=== PATIENT | male | born 1975 | race American Indian/Alaskan Native ===

== ENCOUNTER 2021-11-22 18:27 | Emergency (ER) | payer MEDICAID, SELFPAY ==
--- NOTE | ~2021-11-22 | XR_ITS ---
EXAMINATION: XR CHEST CLINICAL INFORMATION: Left-sided weakness. COMPARISON: None TECHNIQUE: 2 views of the chest were obtained. FINDINGS: No significant abnormality is noted involving the heart, lungs, mediastinum, bony thorax or soft tissues. XR/XR chest 2V IMPRESSION: Unremarkable examination.
--- NOTE | ~2021-11-22 | CT_ITS ---
EXAMINATION: CT HEAD WITHOUT CONTRAST CT LUMBAR SPINE WITHOUT CONTRAST CT HIP SPINE WITHOUT CONTRAST, LEFT CLINICAL INFORMATION: Left arm and leg weakness for 2 months. Hip pain. COMPARISON: None available. TECHNIQUE: Contiguous axial imaging was performed from the skull base to vertex without intravenous administration of contrast. Multidetector helical imaging of the lumbar spine and left hip was obtained without intravenous contrast. Multiple axial reformats and coronal/sagittal reconstructions were created the technologist workstation for review. DLP: 1444 mGy-cm FINDINGS: Head: There is no evidence of acute intracranial hemorrhage or edematous territorial infarction. There is no abnormal attenuation within the brain parenchyma. Roblero-white matter differentiation is preserved. The ventricles are normal in size and configuration. Persistent cavum veli interpositi. No evidence for obstructive hydrocephalus. No abnormal mass effect or midline shift. No extra-axial fluid collections. No acute soft tissue or osseous abnormalities. Mild mucosal thickening of the paranasal sinuses. Layering fluid within the bilateral maxillary sinuses. The mastoid air cells and middle ear cavities are clear. Lumbar Spine: Normal anatomic alignment. No evidence of acute fracture or traumatic subluxation. The vertebral body heights are maintained. Mild loss of intervertebral disc height at all levels. No suspicious lytic or sclerotic osseous lesions. No significant abnormalities of the paraspinal musculature. Limited evaluation of the intra-abdominal structures without significant abnormalities. The abdominal aorta is of normal contour and caliber. AXIAL SPINAL LEVELS: L1-L2: Normal annular contour. There is no facet joint arthropathy. There is no neural foraminal stenosis. There is no demonstrated spinal canal stenosis. L2-L3: Normal annular contour. There is mild left and no right facet joint arthropathy. There is no neural foraminal stenosis. There is no demonstrated spinal canal stenosis. L3-L4: Shallow diffuse disc bulge. There is mild bilateral facet joint arthropathy. There is mild left and no right neural foraminal stenosis. There is no demonstrated spinal canal stenosis. L4-L5: Shallow diffuse disc bulge. There is mild bilateral facet joint arthropathy. There is mild left and no right neural foraminal stenosis. There is no demonstrated spinal canal stenosis. L5-S1: Mild diffuse disc bulge. There is mild bilateral facet joint arthropathy. There is no neural foraminal stenosis. There is no demonstrated spinal canal stenosis. Left Hip: Normal alignment of the left hip. No demonstrated acute fracture or dislocation of the left hip. No demonstrated cortical disruption. The trabecular lines are maintained. Mild degenerative arthropathy of the left hip with slight subchondral eburnation of the superior acetabulum and marginal osteophytosis. Otherwise, the joint space is well-preserved. No lytic or sclerotic osseous lesions. No demonstrated significant hip joint effusion. Mild fat stranding inferior to the left ischial tuberosity with mild enthesophyte formation. No demonstrated additional focal soft tissue swelling. No demonstrated soft tissue collection. No radiopaque foreign bodies. CT/CT lumbar spine wo con IMPRESSION: 1. No evidence of acute intracranial hemorrhage or edematous territorial infarction. 2. Mild to moderate sinonasal mucosal disease with layering fluid within the bilateral maxillary sinuses. 3. No evidence of acute fracture or traumatic subluxation of the lumbar spine. 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 Most notably on this limited exam without intrathecal contrast, there appears to be mild neural foraminal stenoses at L3-L4 and L4-L5. No overt spinal canal stenosis. 4. No demonstrated fracture or dislocation of the left hip. Mild degenerative arthropathy of the left hip. 5. Mild fat stranding inferior to the left ischial tuberosity with mild enthesophyte formation.
[2021-11-22 18:36] VITALS: BP 143/74; PULSE 81; RESP 16; TEMP 36.5; O2SAT 100; BMI 30.4
--- NOTE | 2021-11-22 19:14 | ECG_ITS ---
Test Reason : WEAK Blood Pressure : / mmHG Vent. Rate : 064 BPM Atrial Rate : 064 BPM P-R Int : 172 ms QRS Dur : 074 ms QT Int : 388 ms P-R-T Axes : 032 015 005 degrees QTc Int : 400 ms Normal sinus rhythm Normal ECG No previous ECGs available Referred By: Edie Davis Electronically Signed By:Dequan Brice
--- NOTE | 2021-11-22 19:21 | ED.NEUROSD ---
HPI - Neuro Symptoms/Deficit General Chief Complaint: Extremity Problem Stated Complaint: weakness in L leg Time Seen by Provider: 11/22/21 18:46 Source: patient Mode of arrival: ambulatory Limitations: no limitations History of Present Illness HPI Narrative: 46-year-old male with a past medical history of chronic back pain otherwise denies any other medical history presenting to the ED with complaints of persistent non progressive 1 month of left arm/left leg weakness reporting it does not move the way I wanted to . He believes that his gait has changed. He denies any dizziness, headaches, neck pain/ stiffness, trouble swallowing or breathing, drooling, changes in voice, slurred speech, droopiness of the face, paresthesias, recent falls, chest pain or shortness of breath, dyspnea on exertion, orthopnea, palpitations, lower extremity edema or calf tenderness, nausea/vomiting / diarrhea constipation, abdominal pain, urinary or bowel incontinence or retention, rashes, IV drug use or any other symptoms complaints or concerns at this time. Onset (ago): month(s) (1) Location: left arm and left leg History of same: No Severity: mild Quality: weak and constant Relieving factors: none Exacerbating factors: other (walking) Context: gradual onset On Anticoagulants: No Associated symptoms: denies other symptoms Treatments Prior to Arrival: none Related Data Allergies Allergy/AdvReac Type Severity Reaction Status Date / Time acetaminophen [From VICODIN] Allergy Unknown SWELLING/RA Unverified 11/22/21 18:36 hydrocodone [From VICODIN] Allergy Unknown SWELLING/RA Unverified 05/16/20 15:22 Review of Systems Review of Systems: Constitutional : No Fever, No Chills, No Night Sweats, No Fatigue, No Malaise ENT/Mouth : No Ear Pain, No Nasal Congestion, No Sinus Pain, No sore throat, No Rhinorrhea Eyes: No Eye Pain, No Swelling, No Redness, No Foreign Body, No Discharge, No Vision Changes Cardiovascular : No Chest Pain, No SOB, No Dyspnea on Exertion, No Orthopnea, No Palpitations Respiratory : No Cough, No Sputum, No Wheezing, No Dyspnea Gastrointestinal : No Nausea, No Vomiting, No Diarrhea, No Constipation, No abdominal Pain, No Hematochezia, No Melena Genitourinary : No Dysuria, No Urinary Frequency, No Urinary Incontinence, No Urgency, No Flank Pain Musculoskeletal : + left hip joint pain, No Myalgias, No joint swelling Skin : No lacerations Neuro : + left upper arm and left lower leg weakness, No Numbness, No Paresthesias, No Loss of Consciousness, No Dizziness, No Headache Yes all other systems are reviewed and are negative [facility] Past Medical History Attestation statement: The following information was validated with the patient. Medical History No known health problems Social History Social History Advance Directives: No Advance Directives Information Provided: No Physical Exam Vital Signs: Vital Signs: Last Vital Signs Temp 97.7 F 11/22/21 18:36 Pulse 81 11/22/21 18:36 Resp 16 11/22/21 18:36 BP 143/74 H 11/22/21 18:36 Pulse Ox 100 11/22/21 18:36 BMI result Body Mass Index 30.4 Vital signs have been reviewed as normal and appeared to be correct. Blood pressure normal. Heart rate normal. Respiration rate normal. Temperature normal. Oxygen saturation normal. Appearance: Alert. Oriented X3. No acute distress. Head: Normal external exam. Normocephalic. Atraumatic. Able to rotate head bilaterally. Eyes: PERRLA. EOMI. No nystagmus noted. Conjunctiva and sclera normal. Eyelids normal. Corneal reflex normal. ENT: EAC normal. TM's Normal. Hearing normal. Pharynx normal. Uvula midline. tongue midline. Moist mucous membranes. No trismus noted. No drooling noted. No muffled voice noted. No nystagmus noted. Neck: Normal inspection. Neck supple. FROM. No adenopathy. Trachea midline. Thyroid Normal. No meningeal signs. No neck mass noted. CVS: Normal heart rate and rhythm. Heart sound normal. No murmurs noted. Pulses normal throughout. Respiratory: No respiratory distress. Painless inspiration. Breath sounds normal. No wheezes/rales/rhonchi noted. Chest nontender. No accessory muscle usage noted or decreased air movement noted. Abdomen: Soft and nontender. Bowel sounds normal in all 4 quadrants. No distention noted. No organomegaly noted. No visible injury noted. Back: No CVA tenderness. Full range of motion noted. Skin: Skin warm and dry. Normal skin color. Normal skin turgor. No rashes/lesions/lacerations noted. Extremities: No lower extremity edema. Extremities exhibit normal range of motion. Extremities nontender. Able to shrug shoulders bilaterally and keep up against resistance. Neuro: Oriented X 3. No motor deficit. No sensory deficit. Reflexes normal. Moving all extremities. No focal motor deficits. Cranial nerves II-XI intact bilaterally. Facial strength normal. Normal cognition. Speech normal. Gait normal. Strength 5/5 throughout. No pronator drift. No tremor noted. No fasciculations noted. No rigidity noted. Muscle tone normal throughout. No asterixis noted. Znzkcp-vg-[id number] test normal. Heel to lopez test normal. Tandem gait normal. Does not sway with eyes open. Romberg test negative. Rapid alternating movement upper extremity normal. Rapid alternating movement lower extremity normal. Hand drop from overhead Misses face. NIHSS score 0. Course Course Course Narrative: 19:15pm - 46-year-old male with a past medical history of chronic back pain otherwise denies any other medical history presenting to the ED with complaints of persistent non progressive 1 month of left arm/left leg weakness reporting it does not move the way I wanted to . He believes that his gait has changed. Plan: labs, EKG, CT scan of brain, CT scan of lumbar and left hip, chest x-ray then re-evaluate. Reevaluation(s) Reevaluation #1: - Sign out to [facility] Landrum pending labs, CXR, CT scan of brain/lumbar and left hip results. Time: 20:14 [facility] - Neuro Symptoms/Deficit Medical Records Attestation: I reviewed the patient's medical records. Lab Data Attestation: I reviewed the patient's lab results. Result diagrams: 11/22/21 20:07 11/22/21 20:07 Labs: Lab Results 11/22/21 Range/Units 20:07 WBC 7.6 (4.8-10.8) X10*3/uL RBC 4.42 L (4.60-5.80) X10*6/uL Hgb 13.5 L (14.0-18.0) g/dl Hct 41.6 L (42.0-52.0) % MCV 94.1 (80.0-98.0) fL MCH 30.5 (27.0-33.0) pg MCHC 32.5 (31.0-36.0) g/dl RDW 13.2 (11.0-16.0) % Plt Count 159 L (160-400) X10*3/uL MPV 11.4 (9.4-12.4) fL Immature Gran % (Auto) 0.1 (0.0-0.4) % Neut % (Auto) 35.2 L (45-73) % Lymph % (Auto) 54.3 H (20-40) % Glascock % (Auto) 7.5 (2-11) % Eos % (Auto) 2.4 (0-4) % Baso % (Auto) 0.5 (0-2) % Lymph # (Auto) 4.1 (1.2-4.9) X10*3/uL Glascock # (Auto) 0.6 (0.1-1.2) X10*3/uL Eos # (Auto) 0.2 (0.0-0.4) X10*3/uL Baso # (Auto) 0.0 (0.0-0.2) X10*3/uL Abs Immat Gran (auto) 0.01 (0.00-0.03) X10*3/uL Absolute Neuts (auto) 2.7 (2.0-8.3) x10*3/uL Absolute Nucleated RBC 0.000 (0.0-0.012) X10*3/uL Nucleated RBC % (auto) 0.0 (0.0-0.2) /100WBC ECG Data Attestation: I personally reviewed and interpreted this ECG as follows: ECG interpretation date: 11/22/21 ECG interpretation time: 19:50 Interpretation: Normal sinus rhythm with ventricular rate of 64 with a normal MN interval normal QRS duration normal QT/ QTC interval. No acute ischemic change are noted. No prior EKGs to compare to in our system at this time. Critical Care Time Critical Care Time Critical Care Time: Yes Total Critical Care Time: 60 Attestation: I personally attest to this time spent taking care of the patient Discharge Plan Discharge Clinical Impression: Acute pain of left hip, Left arm weakness, Left leg weakness Patient Disposition: Still a Patient Instructions: Hip Pain (ED) Referrals: Physician,Joaquim J [Primary Care Provider] - 2 days (your pcp) Print Language: Emirati
[2021-11-22 20:11] LABS: MANUAL DIFF FLAG NO
[2021-11-22 20:12] LABS: Basophils Percent Auto 0.5 % (0-2); Eosinophils Absolute Auto 0.2 X10*3/uL (0.0-0.4); Eosinophils Percent Auto 2.4 % (0-4); Hematocrit 41.6 % (42.0-52.0); Hemoglobin 13.5 g/dl (14.0-18.0); Imm Gran Abs Auto 0.01 X10*3/uL (0.00-0.03); Imm Gran Pct Auto 0.1 % (0.0-0.4); Lymphocytes Absolute Auto 4.1 X10*3/uL (1.2-4.9); Lymphocytes Percent Auto 54.3 % (20-40); Mean Corpuscular HGB Conc 32.5 g/dl (31.0-36.0); Mean Corpuscular Hemoglobin 30.5 pg (27.0-33.0); Mean Corpuscular Volume 94.1 fL (80.0-98.0); Mean Platelet Volume 11.4 fL (9.4-12.4); Monocytes Absolute Auto 0.6 X10*3/uL (0.1-1.2); Monocytes Percent Auto 7.5 % (2-11); Neutrophils Absolute Auto 2.7 x10*3/uL (2.0-8.3); Neutrophils Percent Auto 35.2 % (45-73); Platelet Count 159 X10*3/uL (160-400); Red Blood Count 4.42 X10*6/uL (4.60-5.80); Red Cell Distribution Width 13.2 % (11.0-16.0); White Blood Count 7.6 X10*3/uL (4.8-10.8)
[2021-11-22 20:19] LABS: INTERNATIONAL NORM RATIO 1.1 (0.9-1.1); Prothrombin Time 12.6 SEC (9.9-13.0)
[2021-11-22 20:33] LABS: Alanine Aminotransferase 30 U/L (0-40); Albumin Level 4.2 g/dL (3.5-5.0); Alkaline Phosphatase 49 U/L (39-117); Anion Gap 14 (12-20); Aspartate Amino Transferase 34 U/L (5-37); Bilirubin Total 0.6 mg/dL (0.0-1.0); Blood Urea Nitrogen 12 mg/dL (9-16); Calcium 9.5 mg/dL (8.4-10.2); Carbon Dioxide 26 mmol/L (22-29); Chloride 107 mmol/L (96-108); Creatinine Clr Calc Pharmacy 109.4; Estimated Glomerular Filt Rate > 60; Glucose Random 102 mg/dL (60-115); Magnesium 2.3 mg/dL (1.6-2.6); Potassium 4.5 mmol/L (3.3-5.1); Sodium 142 mmol/L (135-145); Total Protein 7.4 g/dL (6.5-8.0); Troponin-I High Sensitivity < 3.5 ng/L (<3.5-35.0)
== END 2021-11-22 22:34 | disposition home or self-care (01) ==
PROVIDERS: Physician Assistant Medical; Emergency Provider Internal Medicine
DX: M25.552 Pain in left hip (principal); R53.1 Weakness
CPT/HCPCS: 36415; 70450; 71046; 72131; 73700; 80053; 82550; 83735; 84484; 85025; 85610; 93005; 99284; 99291

== ENCOUNTER 2021-12-06 19:10 | Emergency (ER) | payer OTHER, MEDICAID, SELFPAY ==
--- NOTE | ~2021-12-06 | XR_ITS ---
EXAMINATION: X-RAY RIGHT HAND X-RAY RIGHT WRIST CLINICAL INFORMATION: Fall COMPARISON: X-ray right hand 01/17/2020 TECHNIQUE: Hand 3 views. Wrist 4 views. FINDINGS: Right wrist: No evidence of acute fracture or dislocation. The scaphoid bone appears intact. Joint spaces are maintained. 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 Right hand: No evidence of acute fracture or dislocation. Alignment is anatomic. Joint spaces are maintained. XR/XR wrist RT 2V IMPRESSION: No radiographic evidence of acute osseous abnormality.
--- NOTE | ~2021-12-06 | XR_ITS ---
EXAMINATION: X-RAY RIGHT HAND X-RAY RIGHT WRIST CLINICAL INFORMATION: Fall COMPARISON: X-ray right hand 01/17/2020 TECHNIQUE: Hand 3 views. Wrist 4 views. FINDINGS: Right wrist: No evidence of acute fracture or dislocation. The scaphoid bone appears intact. Joint spaces are maintained. 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 Right hand: No evidence of acute fracture or dislocation. Alignment is anatomic. Joint spaces are maintained. XR/XR hand RT min 3V IMPRESSION: No radiographic evidence of acute osseous abnormality.
[2021-12-06 19:13] VITALS: BP 126/76; PULSE 68; RESP 17; TEMP 35.9; O2SAT 97; BMI 29.8
--- NOTE | 2021-12-06 19:35 | ED_ITS ---
HPI - Extremity Problem General Chief complaint: Extremity Injury, Upper Stated complaint: hand injury - work related Time Seen by Provider: 12/06/21 19:25 Source: patient Mode of arrival: ambulatory History of Present Illness HPI Narrative: 46-year-old male with no significant past medical history presenting to the ED complaining of right hand/middle finger and wrist pain s/p trip and fall at work yesterday. States was holding box and tripped over something on the floor landing on right hand in awkward position. Denies head trauma/LOC. Reports pain with hand/wrist ROM. Also reports associated tingling. Denies numbness, weakness MD Complaint: extremity pain and extremity swelling Onset (ago): day(s) Related Data Allergies Allergy/AdvReac Type Severity Reaction Status Date / Time acetaminophen [From VICODIN] Allergy Unknown SWELLING/RA Verified 12/06/21 19:12 hydrocodone [From VICODIN] Allergy Unknown SWELLING/RA Verified 12/06/21 19:12 Review of Systems Review of Systems: Constitutional: No Fever, No Chills ENT/Mouth: No Ear Pain, No Nasal Congestion,No sore throat, No Rhinorrhea, No Swallowing Difficulty Cardiovascular: No Chest Pain, No SOB Respiratory: No Cough, No Sputum Gastrointestinal: No Nausea, No Vomiting, No Diarrhea, No Constipation, No Abdominal pain Genitourinary:, No Dysuria, No Urinary Frequency, No Hematuria, No Flank Pain Musculoskeletal: + joint pain, No Myalgias, + Joint Swelling Skin: No Skin Lesions, No rash Neuro: No Weakness, No Numbness, + Paresthesias Yes all other systems are reviewed and are negative Neurologic: Denies Sensory deficit (Neuro) REPLACED BY [facility] Past Medical History Attestation statement: The following information was validated with the patient. Medical History No known health problems Social History Social History Advance Directives: No Advance Directives Information Provided: Yes Physical Exam Vital Signs: Vital Signs: Last Vital Signs Temp 96.6 F L 12/06/21 19:13 Pulse 68 12/06/21 19:13 Resp 17 12/06/21 19:13 BP 126/76 12/06/21 19:13 Pulse Ox 97 12/06/21 19:13 BMI result Body Mass Index 29.8 Const: General: cooperative, healthy appearing and no acute distress Orientation/consciousness: patient oriented x3 Limitations: no limitations HEENT: Head: Yes normal to inspection and Yes atraumatic Ears: hearing grossly normal bilaterally General nose exam: Normal external nose present Face and sinus: Yes normal facial exam Eyes: General: appearance normal, both eyes and all related structures EOM: EOMs intact bilaterally Neck: Neck: Yes normal visual inspection and Yes no meningeal signs Resp: Effort & Inspection: normal respiratory effort and no respiratory distress Cardio: Rate: regular rate Peripheral pulses: radial pulses present Skin: Rashes: no rashes Wounds: no wounds Neuro: General: patient oriented x3, tone normal and no meningeal signs Gait exam (Neuro): Normal gait present Sensory Exam: No Sensory deficit (Neuro) Extrem: Other: Right wrist with mild tenderness. No snuffbox tenderness. FROM intact. Third digit with noted swelling. FROM intact to all digits, [id number] opposition limited to 3rd digit 2/2 pain, otherwise intact. Neurovascular intact, sensation intact to light touch Course Course Course Narrative: XR wrist RT 2V / XR hand RT min 3V IMPRESSION: No radiographic evidence of acute osseous abnormality. >> results discussed with patient, is to follow-up with PCP. Will apply finger splint to 3rd digit for possible tendon injury and give patient orthopedic hand follow-up MDM - Extremity (Nontraumatic) MDM Narrative Medical decision making narrative: 46-year-old male with no significant past medical history presenting to the ED complaining of right hand/middle finger and wrist pain s/p trip and fall at work yesterday. On exam vital signs stable, NAD/nontoxic, physical exam as above. Rule out fracture vs sprain Plan: X-rays Medical Records Attestation: I reviewed the patient's medical records. Lab Data Attestation: I reviewed the patient's lab results. Discharge Plan Discharge Clinical Impression: Hand injury Patient Disposition: Home, Self-Care Instructions: Hand Sprain (ED) Additional Instructions: Your x-ray does not show any fracture. You may have a tendon injury to your finger/strain Wear finger splint until you see the medical certification specialist, call to make an appointment. Take Tylenol /Motrin for pain Referrals: Ksenia Maria MD [Physician] - 1 week Stand Alone Forms: Work/School Release Interventions: ED Discharge Assessment Last Done: 12/06/21 21:24 Discharge Date/Time: 12/06/21 21:26
== END 2021-12-06 21:26 | disposition home or self-care (01) ==
PROVIDERS: Emergency Provider Internal Medicine
DX: S69.91XA Unspecified injury of right wrist, hand and finger(s), initial encounter (principal); W01.0XXA Fall on same level from slipping, tripping and stumbling without subsequent striking against object, initial encounter; Y93.01 Activity, walking, marching and hiking; Y92.513 Shop (commercial) as the place of occurrence of the external cause; Y99.0 Civilian activity done for income or pay
CPT/HCPCS: 29130; 73100; 73130; 99283

== ENCOUNTER → 2021-12-18 12:17 | Outpatient (BNVA) | payer OTHER, MEDICAID, SELFPAY | PROVIDERS: Visit Provider Physician Assistant | DX: S63.612A Unspecified sprain of right middle finger, initial encounter (principal); S63.501A Unspecified sprain of right wrist, initial encounter | CPT/HCPCS: 99202 ==

== ENCOUNTER → 2022-02-02 15:22 | Outpatient (BNVA) | payer OTHER, MEDICAID, SELFPAY | PROVIDERS: Visit Provider Physician Assistant | DX: S63.612A Unspecified sprain of right middle finger, initial encounter (principal); S63.501A Unspecified sprain of right wrist, initial encounter | CPT/HCPCS: 99212 ==

== ENCOUNTER 2022-02-18 08:38 | Outpatient (REF) | payer OTHER, MEDICAID, SELFPAY ==
--- NOTE | ~2022-02-18 | XR_ITS ---
EXAMINATION: RIGHT HAND AND 3RD FINGER. CLINICAL INFORMATION: Pain. COMPARISON: 12/06/2021. TECHNIQUE: 3 views of the right hand and 3 views of the right 3rd finger. FINDINGS: There is no evidence of acute fracture or dislocation of the right hand. There is no evidence of acute fracture or dislocation of the right 3rd finger. There is soft tissue swelling seen about the 3rd proximal interphalangeal joint. Joint spaces are maintained. No destructive bony lesions are identified. XR/XR hand RT min 3V IMPRESSION: Soft tissue swelling without bony fracture identified.
--- NOTE | ~2022-02-18 | XR_ITS ---
EXAMINATION: RIGHT HAND AND 3RD FINGER. CLINICAL INFORMATION: Pain. COMPARISON: 12/06/2021. TECHNIQUE: 3 views of the right hand and 3 views of the right 3rd finger. FINDINGS: There is no evidence of acute fracture or dislocation of the right hand. There is no evidence of acute fracture or dislocation of the right 3rd finger. There is soft tissue swelling seen about the 3rd proximal interphalangeal joint. Joint spaces are maintained. No destructive bony lesions are identified. XR/XR finger RT min 2V IMPRESSION: Soft tissue swelling without bony fracture identified.
== END 2022-02-18 08:39 | disposition home or self-care (01) ==
LOC: HO.HOSX 08:38
PROVIDERS: Visit Provider Orthopaedic Surgery
DX: S63.501D Unspecified sprain of right wrist, subsequent encounter (principal); S63.61 Unspecified sprain of other and unspecified finger(s)
CPT/HCPCS: 73130; 73140; 99212

== ENCOUNTER 2022-03-31 10:14 | Outpatient (REF) | payer OTHER, MEDICAID, SELFPAY ==
--- NOTE | ~2022-03-31 | XR_ITS ---
EXAMINATION: XR WRIST, RIGHT CLINICAL INFORMATION: Right wrist pain. COMPARISON: Right wrist radiographs 12/06/2021. TECHNIQUE: PA, lateral, and oblique views of the right wrist. FINDINGS: There has been no significant interval change when compared to 12/06/2021. Once again, the bones and soft tissues are normal. No fracture. Alignment is anatomic with normal joint spaces. No erosions or abnormal soft tissue calcifications. XR/XR wrist RT min 3V IMPRESSION: Normal right wrist.
== END 2022-03-31 10:15 | disposition home or self-care (01) ==
LOC: HO.HOSX 10:14
PROVIDERS: Visit Provider Orthopaedic Surgery
DX: S63.501A Unspecified sprain of right wrist, initial encounter (principal); S63.618A Unspecified sprain of other finger, initial encounter
CPT/HCPCS: 73110; 99212

== ENCOUNTER 2022-05-11 15:30 | Outpatient (RCR) | payer OTHER, MEDICAID, SELFPAY ==
--- NOTE | 2022-01-15 16:13 | MHC.OT.OEV ---
[address] [phone] F: [phone] Occupational Therapy Evaluation Diagnosis: Right MF sprain Date of Onset: 12/05/21 Date of Surgery: Attending Provider: Reyna Angulo PA-C Prescribed Treatment: Eval and treat MD Follow Up Appointment: History of Current Condition: Pt reports tripping on a pallet at work and falling on his right hand. Pt con't to work with his hand swollen. The next day to the ED. XR neg. Pt given a hand splint and referred to [facility] Ortho. Seen in Orthopedics , d/c'd splint and instructed on hand exercises. Pt now with reports con't pain , swelling and can't make a fist. 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 taping box, lift and stack on a pallet Watches TV. Work out with free wts and push ups at home.. Helps with homemaking Living Situation, Family and/or Social Support: Lives with girl friend, 21 yo daughter .. and small dog Current Level of Function and Occupation Self Care, Employment, Leisure: Pt reports he is unable to use his right hand . Avoiding right middle finger with all activities Can't wash dishes.. fold heavy clothes..can't lift groceries Not doing and wts or push ups OOW since the injury Sleep: Extreme difficulty sleeping. Inc digit swelling in the am Driving: Doesn't not drive.. Vision: Balance: Pain Assessment Pain Score: 8 Pain Scale Used: Numeric (0 - 10) Pain Location and Description: 8 -10 sharp at MF 4 if not using the hand Aggravating Factors: Moving the finger Alleviating Factors: Avoiding using the right hand Skin and Soft Tissue Assessment Skin and Soft Tissue: Swelling Comments: Right MF PIP jt Nerve assessment Ulnar Nerve: Median Nerve: Radial Nerve: Comments: Sensory Assessment Temperature: Light Touch: WFL Proprioception: Vibration: Comments: Edema Assessment Upper Extremity: Right Impaired Lower Extremity: Comments: Right PIPj 7.6 cm.... Left 7 cm Dexterity Assessment Dexterity: Not Tested Comments: Special Tests Comments: AROM(PROM) Strength Cervical Cervical Flexion: Cervical Extension: Cervical Lateral Flexion: Cervical Rotation: Comments: Shoulder Flexion: Extension: Abduction: Internal Rotation: External Rotation: Comments: Flexion: Extension: Abduction: Internal Rotation: External Rotation: Comments: Elbow Flexion: Extension: Pronation: Supination: Comments: Flexion: Extension: Pronation: Supination: Comments: Wrist Flexion: Extension: Ulnar Deviation: Radial Deviation: Comments: Flexion: Extension: Ulnar Deviation: Radial Deviation: Comments: Thumb Thumb CMC Flexion: Thumb MCP Flexion: Thumb IP Flexion: Radial Abduction: Palmar Abduction: [place] ([place] 0-10): Comments: Digits Index MCP: PIP: DIP: Long MCP: PIP: 0/90 DIP: 0/40 Ring MCP: PIP: DIP: Small MCP: PIP: DIP: Comments: R MF stiff. Passive digit flexion 0 cm to DPC Gross Grasp: Lateral Pinch: Two-Point Pinch: Three-Jaw [place]: Comments: Deferred. Patient Education Primary Language: Mongolian Associate Partner Required: No Current Knowledge: Minimal, needs reinforcement Teaching Method: Demonstration Handouts Verbal Education Needs Identified on Evaluation: Exercise How did patient/family demonstrate learning? Patient demonstrates Patient verbalizes Barriers to Learning: Other Readiness for Learning: Accepting Who was educated? Patient Comments: Plan of Care Assessment: Pt is a 46 yo male 5 wks s/p right MP PIPjt strain injury due to fall on his hand when he tripped over a pallet at work Today he presents with complaint of moderate to high pain and avoiding use of right hand MF PIPj effusion and IP jt stiffness noted. He has been out of work since this injury and needs to be able to use his right hand for repetitive grasp activities. Pt will benefit from OT to help improve pain , ROM and functional use of his right dominant hand STG Duration: 3 wks Short Term Goals: Demo right MF flexion to DPC Demo proper right hand grasp with daily activities including simulated work tasks Right monkey trainer strength to > 60 lb Indep with HEP LTG Duration: 3 wks Band Singer Goals: Same as above Frequency and Duration: The patient will be seen 2x wk x 2 wks Treatment Plan: Therapeutic Exercise Therapeutic Activity Home Exercise Program Patient Education Electronically Signed By: Laurie Banegas ot cht clt Reviewed/agree with student documentation: N/A Therapist: Please sign and return to therapist, Thank you for your referral.
--- NOTE | 2022-02-09 16:22 | MHC.OT.OP ---
[address] [phone] F: [phone] Occupational Therapy Progress Note Diagnosis: Right MF sprain Date of Surgery: Date of Evaluation: 01/15/22 Treatments to Date: 3 Cancellations to Date: No Shows to Date: Subjective: Now its like a seven , but if I hit something it goes to my finger tip. And it's stiff Pain Score: 7 Pain Location: Right MF Objective Measures: PIPj R 8 cm inc from 7.6 cm AROM PIPj 100 deg inc from 90 deg DIPj 50 deg inc from 40 deg... DIPj flex 20 deg with PIPJ flexion block Status: Not Progressing Assessment: Pt reports worsening pain and digit swelling and stiffness Inc in PIPj circumference by 0.4 cm noted today Inc ind digit AROM and composite digit flexion to DPC with gentle passive flexion however tight ORL noted Pt may benefit from PIPj immob splint fabricated today to work on DIPJ flex/ORL stretch. 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
--- NOTE | 2022-05-11 16:13 | MHC.OT.DC ---
[address] [phone] F: [phone] Occupational Therapy Discharge Note Provider: Ksenia Maria Diagnosis: Right MF sprain Date of Surgery: Date of Evaluation: 01/15/22 Date of Discharge: 05/11/22 Treatments to Date: 15 Cancellations to Date: No Shows to Date: Discharge Status: Improved Function Independent with HEP Discharge Summary: Continued complaint of high pain and complaint of hand swelling. Tolerated ther ex and lifting activities without complaint. 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 Hand edema and AROM WNL . Pt tends to be sub max with ROM but can correct with cues. ROM MF to DPC . Passive digit flexion with ease to DPC. 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 Skilled OT not needed Electronically Signed By: Laurie Banegas OT CHT CLT Reviewed/agree with student documentation: N/A Therapist: Please Sign and return to therapist, thank you for your referral.
== END 2022-05-11 16:13 | disposition home or self-care (01) ==
LOC: HO.OT 15:30
PROVIDERS: Visit Provider Physician Assistant
DX: S63.501A Unspecified sprain of right wrist, initial encounter (principal)
CPT/HCPCS: 97035; 97110; 97140; 97165; 97760

== ENCOUNTER → 2022-05-12 15:21 | Outpatient (BNVA) | payer OTHER, MEDICAID, SELFPAY | PROVIDERS: PCP Internal Medicine; Visit Provider Physician Assistant | DX: S63.501D Unspecified sprain of right wrist, subsequent encounter (principal); S63.692D Other sprain of right middle finger, subsequent encounter | CPT/HCPCS: 99212 ==

== ENCOUNTER 2022-06-09 15:00 | Outpatient (RCR) | payer OTHER, MEDICAID, SELFPAY | END 2022-06-22 13:41 | disposition home or self-care (01) | LOC: HO.PT 15:00 | PROVIDERS: PCP Internal Medicine; Visit Provider Internal Medicine | DX: M25.572 Pain in left ankle and joints of left foot (principal) | CPT/HCPCS: 97110; 97112; 97116; 97162 ==

== ENCOUNTER → 2022-06-30 15:16 | Outpatient (BNVA) | payer OTHER, MEDICAID, SELFPAY | PROVIDERS: PCP Internal Medicine; Visit Provider Physician Assistant | DX: S63.501A Unspecified sprain of right wrist, initial encounter (principal); S63.632A Sprain of interphalangeal joint of right middle finger, initial encounter; W01.0XXA Fall on same level from slipping, tripping and stumbling without subsequent striking against object, initial encounter; X50.0XXA Overexertion from strenuous movement or load, initial encounter; Y93.01 Activity, walking, marching and hiking; Y92.69 Other specified industrial and construction area as the place of occurrence of the external cause; Y99.0 Civilian activity done for income or pay | CPT/HCPCS: 99212 ==

== ENCOUNTER 2022-07-16 15:08 | Outpatient (REF) | payer MEDICAID, SELFPAY | END 2022-07-16 15:09 | disposition home or self-care (01) | LOC: HO.HOSX 15:08 | PROVIDERS: Visit Provider Physician Assistant | DX: Z13.89 Encounter for screening for other disorder (principal) ==

== ENCOUNTER 2022-07-17 | Outpatient (REF) | payer MEDICAID, SELFPAY ==
--- NOTE | ~2022-07-17 | XR_ITS ---
EXAMINATION: XR ankle LT min 3V CLINICAL INFORMATION: Reason for Exam M25.579 - Pain in unspecified ankle and joints of unspecified foot COMPARISON: Ankle radiographs 04/11/2015 TECHNIQUE: AP, lateral, and oblique views of the ankle FINDINGS: No acute fracture or dislocation. Joint spaces are maintained without significant degenerative change. No joint effusion or soft tissue abnormality. XR/XR ankle LT min 3V IMPRESSION: No acute osseous abnormality.
== END 2022-07-17 00:01 ==
LOC: HO.HOSX
PROVIDERS: Visit Provider Physician Assistant
DX: M25.572 Pain in left ankle and joints of left foot (principal)
CPT/HCPCS: 73610; 99212

== ENCOUNTER 2022-10-07 15:30 | Outpatient (RCR) | payer OTHER, MEDICAID, SELFPAY ==
--- NOTE | 2022-10-09 09:09 | MHC.OT.DC ---
[address] [phone] F: [phone] Occupational Therapy Discharge Note Provider: Reyna Angulo Diagnosis: Right wrist sprain Right middle finger sprain Date of Surgery: Date of Evaluation: 09/22/22 Date of Discharge: 10/09/22 Treatments to Date: 3 Cancellations to Date: 0 No Shows to Date: 0 Discharge Status: Discharge Summary: Pt report of severe right hand pain is unchanged at . 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 Today Pt denies hand paresthesia over this week. Significant difficulty with Functional Dexterity test bilaterally and a slight worsening today. FDT Right hand minimally functional and left hand non functional. Questioning baseline ability Wt bearing tolerance on a non digital scale the right hand is 50 lb , left hand 80 lb Lifting [place] box waist to chest 25 lb safe lift. Reports 30 lb too heavy for his back Quick DASH 54 pt. Functionally Pt reports he is unable to open tight jar lids. 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 He reports difficulty with heavy housework due to hand pain and back pain , difficulty with carrying groceries, , washing his back due to hand pain and shoulder pain . Pt reports waking at night with arm pain (biceps pain last night) throbbing. He also reports feeling anxious to leave his house. Inconsistency in pt presentation and duration of symptoms since injury suggest underlying issue perhaps neurological and should be ruled out. He demonstrates good technique with his HEP with red Theraband and a graded hand gripper without complaint of increased pain and he reports he is motivated to regain strength At this time I recommend MD follow up and continuing his HEP. Electronically Signed By: Laurie Banegas OT CHT CLT Reviewed/agree with student documentation: Therapist: Please Sign and return to therapist, thank you for your referral.
== END 2022-10-09 09:10 | disposition home or self-care (01) ==
LOC: HO.OT 15:30
PROVIDERS: Visit Provider Physician Assistant
DX: S63.501D Unspecified sprain of right wrist, subsequent encounter (principal); S63.61 Unspecified sprain of other and unspecified finger(s)
CPT/HCPCS: 97110; 97167

== ENCOUNTER 2022-11-05 15:05 | Outpatient (REF) | payer MEDICAID, SELFPAY ==
--- NOTE | ~2022-11-05 | XR_ITS ---
EXAMINATION: XR HIP, LEFT CLINICAL INFORMATION: Left hip pain COMPARISON: None TECHNIQUE: Two views of the left hip. FINDINGS: Bones and soft tissues are normal. No fracture. Alignment is anatomic. Hip joint space is maintained. XR/XR hip LT min 2V IMPRESSION: Normal left hip.
--- NOTE | ~2022-11-05 | XR_ITS ---
EXAMINATION: XR lumbar spine 2-3V CLINICAL INFORMATION: Reason for Exam CHRONIC BI LOW BACK PAIN COMPARISON: None TECHNIQUE: 3 views of the lumbar spine FINDINGS: 5 nonrib-bearing lumbar-type vertebral bodies. Vertebral body heights are maintained. Alignment is maintained. Disc space heights are maintained. Paravertebral soft tissues are unremarkable. XR/XR lumbar spine 2-3V IMPRESSION: Unremarkable exam.
== END 2022-11-05 15:06 | disposition home or self-care (01) ==
LOC: HO.XRAY 15:05
PROVIDERS: PCP Nurse Practitioner Family; Visit Provider Nurse Practitioner Family
DX: M54.50 Low back pain, unspecified (principal); M25.552 Pain in left hip; G89.29 Other chronic pain
CPT/HCPCS: 72100; 73502

== ENCOUNTER 2023-01-28 18:41 | Outpatient (REF) | payer MEDICAID, SELFPAY ==
--- NOTE | ~2023-01-28 | MR_ITS ---
EXAMINATION: MR ANKLE WITHOUT CONTRAST, LEFT CLINICAL INFORMATION: Chronic pain COMPARISON: None. TECHNIQUE: MRI of the left ankle is performed without contrast on a high field MRI scanner. FINDINGS: SUBCUTANEOUS SOFT TISSUES: Mild generalized edema circumferentially about the ankle and visualized foot. MUSCLES/TENDONS: Intact. PLANTAR FASCIA: Intact. NEUROVASCULAR STRUCTURES/TARSAL TUNNEL: Normal. LIGAMENTS: Anterior Talofibular Ligament: Attenuated compatible with an old partial tear. Ligaments otherwise are intact. BONE/CARTILAGE: Normal. MR/MR ankle LT wo con IMPRESSION: 1. Mild edema in the subcutaneous soft tissues. 2. Old partial tear of the anterior talofibular ligament.
== END 2023-01-28 18:42 | disposition home or self-care (01) ==
LOC: HO.MRI 18:41
PROVIDERS: PCP Nurse Practitioner Family; Visit Provider Emergency Medicine
DX: M25.572 Pain in left ankle and joints of left foot (principal)
CPT/HCPCS: 73721

== ENCOUNTER 2023-02-17 14:01 | Outpatient (REF) | payer MEDICAID, SELFPAY ==
--- NOTE | ~2023-02-17 | MR_ITS ---
EXAMINATION: MR CERVICAL SPINE WITHOUT AND WITH CONTRAST CLINICAL INFORMATION: Quadriparesis. COMPARISON: None available. TECHNIQUE: Multiplanar, multisequential imaging of the cervical spine was performed before and after the intravenous administration of 10 mL of Gadavist. FINDINGS: VERTEBRAL BODIES AND PARASPINAL SOFT TISSUES: There is mild marrow edema/enhancement posterolaterally on the left side at the C2-C3 level. The remainder of the marrow signal is homogeneous. There are no compression fractures or anterior subluxations. Reduced intradiscal signal without significant loss of disc height evident at the C2-C3 and C3-C4 levels. The paraspinal soft tissues are unremarkable. The vertebral artery flow-voids are maintained. The imaged lung apices are grossly clear. No pathologic enhancement identified. CERVICOMEDULLARY JUNCTION AND VISUALIZED POSTERIOR FOSSA: The craniovertebral junction is unremarkable. The imaged portions of the cord are normal. No signal abnormality or syrinx identified. No pathologic intradural enhancement is seen. SPINAL LEVELS: C2-C3: Mild disc degeneration and shallow disc-osteophyte complex without central canal stenosis. Patent foramina. Mild edema/enhancement at the site of left-sided uncovertebral joint spurring. C3-C4: Reduced intradiscal signal and shallow, broad-based posterior disc bulge with mild facet arthropathy. Mild central canal stenosis and hljr-cy-ohrsbrxw foraminal narrowing, more so on the right side. C4-C5: Retrosubluxation and disc-osteophyte complex without central canal stenosis. Severe bilateral foraminal narrowing and mild facet arthropathy. C5-C6: Broad-based disc bulge without central canal stenosis. Severe right foraminal narrowing and dihl-he-gumuhlgw left foraminal encroachment. C6-C7: Very small central disc protrusion. No central canal stenosis or significant foraminal narrowing. C7-T1: No disc pathology. Bilateral uncovertebral joint spurring and facet arthropathy without central canal stenosis. Zkwb-is-jrzppemk foraminal narrowing, more so on the left side. MR/MR cervical spine wo/w con IMPRESSION: 1. Bnly-ze-alulkudg multilevel cervical spondylosis. Mild central canal stenosis at the C3-C4 level with maem-pp-htpjhpoc foraminal narrowing, more so on the right side. 2. Severe bilateral foraminal narrowing at the C4-C5 level with a disc-osteophyte complex. 3. Broad-based disc bulge with severe right foraminal narrowing at the C5-C6 level.
--- NOTE | ~2023-02-17 | MR_ITS ---
EXAMINATION: MR BRAIN WITHOUT AND WITH CONTRAST CLINICAL INFORMATION: Quadriparesis. COMPARISON: None available. TECHNIQUE: Multiplanar, multisequence imaging of the brain was performed before and after the intravenous administration of 10 mL of Gadavist. FINDINGS: No diffusion abnormalities are identified to suggest an acute infarct. The ventricles are normal in size. No mass effect or midline shift is seen. Nonspecific mild bilateral frontoparietal white matter signal changes noted. No extra-axial fluid collections are seen. The brainstem and cerebellum are normal. On postcontrast imaging, there is no abnormal parenchymal or leptomeningeal enhancement. The gradient refocused acquisition is normal. The craniovertebral junction, marrow signal, and midline structures are normal. The major intracranial flow-voids at the level of the ig[place]ug[place] of [place] are preserved. The dural venous sinus flow-voids are maintained. A mild amount of fluid is visible in the left mastoid air cells. There is a small fluid level in the dependent right maxillary sinus. Small retention cyst visible in the left maxillary antrum. MR/MR head/brain wo/w con IMPRESSION: No acute intracranial process. Nonspecific bifrontal white matter signal changes. No abnormal enhancement.
== END 2023-02-17 14:02 | disposition home or self-care (01) ==
LOC: HO.MRI 14:01
PROVIDERS: PCP Nurse Practitioner Family; Visit Provider Psychiatry & Neurology Neurology
DX: G82.50 Quadriplegia, unspecified (principal)
CPT/HCPCS: 70553; 72156; A9585

== ENCOUNTER 2023-04-30 09:17 | Day surgery (SDC) | payer MEDICAID, SELFPAY ==
[2023-04-30] VITALS (8 sets, daily range): BP systolic 107–149; BP diastolic 66–81; PULSE 53–88; RESP 16–18; TEMP 36.4–36.8; O2SAT 96–99; BMI 29.0
--- NOTE | ~2023-04-30 | FL_ITS ---
PROCEDURE: XR LUMBAR PUNCTURE CLINICAL INFORMATION: Motor neuron disease. COMPARISON: None available. TECHNIQUE: Lumbar puncture with fluoroscopic guidance. FINDINGS: Informed consent was obtained from the patient prior to the procedure. During this process, the procedure and potential alternatives were explained, along with the intended outcome and benefits. The risks of the procedure, as well as the risk of not doing the procedure, were discussed. The patient was given the opportunity to ask questions regarding the procedure and appeared competent to make medical decisions. A signed consent form which documents this discussion was placed in the medical record. First attempts were made from a posterior approach at the L3-L4 level however access was not obtained. With Dr. Ordoñez's assistance spinal needle was placed at the L4-L5 level. Opening pressure was 12 cm of water. The cerebral spinal fluid was clear. A total of 8.5 mL of fluid was removed. Patient tolerated procedure without difficulty. FLUOROSCOPY TIME: 1.9 minutes DOSE AREA PRODUCT: 17.366 Gy-cm2 (britton-centimeter squared) FL/FL guided lumbar puncture LP IMPRESSION: Successful lumbar puncture L4-L5 level.
[2023-04-30 09:52] LABS: Basophils Percent Auto 0.4 % (0-2); Eosinophils Absolute Auto 0.1 X10*3/uL (0.0-0.4); Eosinophils Percent Auto 1.8 % (0-4); Hematocrit 45.1 % (42.0-52.0); Hemoglobin 14.9 g/dl (14.0-18.0); Imm Gran Abs Auto 0.01 X10*3/uL (0.00-0.03); Imm Gran Pct Auto 0.1 % (0.0-0.4); Lymphocytes Absolute Auto 4.9 X10*3/uL (1.2-4.9); Lymphocytes Percent Auto 69.7 % (20-40); MANUAL DIFF FLAG SCAN; Mean Corpuscular Hemoglobin 30.7 pg (27.0-33.0); Mean Corpuscular Volume 92.8 fL (80.0-98.0); Mean Platelet Volume 10.9 fL (9.4-12.4); Monocytes Absolute Auto 0.6 X10*3/uL (0.1-1.2); Monocytes Percent Auto 7.8 % (2-11); Neutrophils Absolute Auto 1.4 x10*3/uL (2.0-8.3); Neutrophils Percent Auto 20.2 % (45-73); Platelet Count 174 X10*3/uL (160-400); Red Blood Count 4.86 X10*6/uL (4.60-5.80); Red Cell Distribution Width 12.8 % (11.0-16.0); SCAN SMEAR FLAG 1; White Blood Count 7.1 X10*3/uL (4.8-10.8)
[2023-04-30 10:00] LABS: Prothrombin Time 11.9 SEC (11.1-13.3)
[2023-04-30 10:03] LABS: Partial Thromboplastin Time 26.1 SEC (26.0-36.4)
[2023-04-30 10:42] LABS: SLIDE REVIEW VERIFIED
--- NOTE | 2023-04-30 10:57 | PC.NURSE ---
radiologist aware that patient took Ibuprofen 800 mg on Wednesday, Wednesday and Wednesday. Okay to proceed.
[2023-04-30 13:44] LABS: CSF Appearance Clear, Colorless; CSF Tube # 1
[2023-04-30 14:08] LABS: Glucose CSF 80 mg/dL; Total Protein CSF 29.8 mg/dL (15-45)
[2023-04-30 14:20] LABS: Appearance CSF CLEAR; CSF Monos 12 %; CSF Tube # 4; Color CSF COLORLESS; Lymphocytes CSF 80 %; Neutrophils CSF 8 %
[2023-04-30 14:21] LABS: Red Blood Cell CSF 51 MM*3; White Blood Cell CSF 3 MM*3
[2023-05-05 07:25] LABS: Oligoclonal Serum Yes
[2023-05-05 14:38] LABS: Albumin 4.2 g/dL (3.6-5.1); Albumin, CSF 13.9 mg/dL (8.0-42.0); IgG 1460 mg/dL (600-1640); IgG Synthesis Rate -3.5 mg/24 h (-9.9-3.3); IgG, CSF 2.6 mg/dL (0.8-7.7)
[2023-05-07 17:53] LABS: Oligoclonal Banding Absent (Absent)
== END 2023-04-30 14:26 | disposition home or self-care (01) ==
PROVIDERS: Radiology Diagnostic Radiology; Visit Provider Psychiatry & Neurology Neurology
PROC: 009U3ZZ Drainage of Spinal Canal, Percutaneous Approach (ICD-10-PCS; CPT 62270; principal; 2023-04-30 11:00)
DX: G12.20 Motor neuron disease, unspecified (principal)
CPT/HCPCS: 36415; 62328; 82042; 82945; 83916; 84157; 85025; 85610; 85730; 87015; 87070; 87205; 89051

== ENCOUNTER → 2023-04-30 11:45 | Outpatient (BNV) | payer SELFPAY | PROVIDERS: Visit Provider Radiology Diagnostic Radiology | DX: G12.20 Motor neuron disease, unspecified (principal) | CPT/HCPCS: 62328 ==

== ENCOUNTER 2024-01-04 14:47 | Outpatient (AMB) | payer MEDICAID, SELFPAY ==
--- NOTE | 2024-01-04 14:48 | MHC.OFFVIS ---
Vital Signs 01/04/24 14:58 Height 6 ft Weight 210 lb BMI 28.5 BP 144/82 H Blood Pressure Location Lt brachial Position Sitting Respiration 18 Pulse 103 H Pulse Source Pulse Oximeter Pulse Oximetry (%) 99 Oxygen Delivery Method Room Air Intake Visit Reasons: Chronic Bilateral Low Back Pain Automobile Locator Required: Yes Automobile Locator Language: Swedish Accompanied by: Significant Other Allergies acetaminophen [From VICODIN] Allergy (Unknown, Verified 01/04/24 14:58) SWELLING/RASH hydrocodone [From VICODIN] Allergy (Unknown, Verified 01/04/24 14:58) SWELLING/RASH HPI HPI Chronic Bilateral Low Back Pain: Details: Patient is a 48 years old male with history of work related injury and chronic left ankle pain since 12/05/21 when he tripped over a metal table while carrying a heavy box presents today for initial evaluation of progressively worsening chronic low back pain, frequent falls and weakness. Patient was seen by Orthopedics and was referred to physical therapy but had no follow up since 2021. Patient also reports left knee pain. His back pain is worse with standing, flexing forward, bending and walking and less severe at rest or sitting. He denies any radiation of back pain into legs but reports increased tingling and pain in left ankle. Patient reports he had EMG and NVC studies of his lower extremities, these results are not available for review today. Pain affects his daily activities, functioning, mobility, mood, sleep and social interactions. Denies any fever, chills, unintentional weight loss, burning, numbness, bladder or bowel dysfunction or saddle anesthesia. Reports bilateral lower extremity imbalance and weakness. Uses walker with ambulation. Patient smokes 3-5 cigarrets per day. Denies alcohol consumptions or illicit drug use. He is currently on Suboxone, h/o opioid abuse. Oswestry Low Back Disability Score=40 (completely disabled). Onset: 12/05/21 Location: Low back pain, left knee and left ankle pain Duration: Chronic pain since 2021 Characteristics of symptom or complaint: Throbbing, pulling, aching, hurting, sharp, tingling, radiating Aggravating or associated factors: Standing, walking, movements, forward flexion or bending Relieving factors: Heat therapy, rest, Tylenol, Ibuprofen Treatment: PT and OT in 2021, walker [facility] Medical History (Updated 01/06/24 @ 08:50 by GERDA Schmid) History of opioid abuse Left ankle pain Work related injury Erectile dysfunction Tobacco dependence Borderline high blood pressure Unsteady gait Abnormal gait due to muscle weakness Chronic back pain Social History Household Members: Significant Other Housing: Apartment Alcohol intake: never Patient Tobacco Use Status: Current everyday Tobacco user Cigarette Packs Per Day: 5 Cigarettes Per Day: 20 Current occupational status: employed 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 Alert and oriented. Mood and affect appropriate. Follows and participates in conversation appropriately. Respiratory effort is unlabored. No cough. Able to transition from sit to stand unassisted. Uses walker with ambulation. Ambulates with bilaterally normal heel strike and toe off on the right, reports imbalance and limited ROM due to chronic left ankle pain. Decreased left heel strike. Back/Spine/Pelvis Other: Limited lumbar ROM due to pain. Slow, antalgic gait with intermittent staggering due to left ankle pain. Mild limping. Can flex forward to 60-70 degrees and extend to 5-10 degrees before experiencing lumbar pain, worse pain with forward flexion and bending. Demonstrates 5/5 strength of quadriceps bilaterally as well as flexion/dorsiflexion of bilateral feet against resistance. 2+ pedal pulses bilaterally. Seated straight leg rise with dorsiflexion positive bilaterally, left>right. +1 patellar and achilles reflexes bilaterally. Facet loading test positive bilaterally. No tenderness in the projection of both SIJ areas. Yony?s, Pelvic compression and Stinchfield tests are negative bilaterally. No groin pain with I/E hip rotations. Unable to complete back exam due to exacerbation of pain. Cervical Spine: cervical ROM normal, cervical muscular tenderness and No Cervical spine tenderness Thoracic/Lumbar Spine: thoracic and lumbar spine normal to inspection, No Thoracic/lumbar spine scar(s), Lasegue's sign positive bilateral and diffuse, pain with thoraco-lumbar ROM, paraspinal muscle tenderness, thoraco-lumbar ROM limited, No thoracic spinal tenderness and lumbar spinal tenderness (L4-S1) Pelvis: no buttock tenderness Sacroiliac joints: bilaterally nontender Extrem General: Yes capillary refill normal, Yes no clubbing, cyanosis or edema and Yes no calf tenderness Left lower extremity: knee Details: normal to inspection, tenderness Location: of the patella and of the medial joint line, normal ROM and crepitus; no swelling, no ecchymosis and no unusual warmth Results Reviewed Results Reviewed: XR LUMBAR PUNCTURE 04/30/23 CLINICAL INFORMATION: Motor neuron disease. TECHNIQUE: Lumbar puncture with fluoroscopic guidance. FINDINGS: Informed consent was obtained from the patient prior to the procedure. During this process, the procedure and potential alternatives were explained, along with the intended outcome and benefits. The risks of the procedure, as well as the risk of not doing the procedure, were discussed. The patient was given the opportunity to ask questions regarding the procedure and appeared competent to make medical decisions. A signed consent form which documents this discussion was placed in the medical record. First attempts were made from a posterior approach at the L3-L4 level however access was not obtained. With Dr. Ordoñez's assistance spinal needle was placed at the L4-L5 level. Opening pressure was 12 cm of water. The cerebral spinal fluid was clear. A total of 8.5 mL of fluid was removed. Patient tolerated procedure without difficulty. FLUOROSCOPY TIME: 1.9 minutes DOSE AREA PRODUCT: 17.366 Gy-cm2 (roblero-centimeter squared) IMPRESSION: Successful lumbar puncture L4-L5 level. XR lumbar spine 2-3V 11/05/22 CLINICAL INFORMATION: Reason for Exam CHRONIC BI LOW BACK PAIN FINDINGS: 5 nonrib-bearing lumbar-type vertebral bodies. Vertebral body heights are maintained. Alignment is maintained. Disc space heights are maintained. Paravertebral soft tissues are unremarkable. IMPRESSION: Unremarkable exam. CT HEAD WITHOUT CONTRAST CT LUMBAR SPINE WITHOUT CONTRAST CT HIP SPINE WITHOUT CONTRAST, LEFT 11/22/21 CLINICAL INFORMATION: Left arm and leg weakness for 2 months. Hip pain. FINDINGS: Head: There is no evidence of acute intracranial hemorrhage or edematous territorial infarction. There is no abnormal attenuation within the brain parenchyma. Roblero-white matter differentiation is preserved. The ventricles are normal in size and configuration. Persistent cavum veli interpositi. No evidence for obstructive hydrocephalus. No abnormal mass effect or midline shift. No extra-axial fluid collections. No acute soft tissue or osseous abnormalities. Mild mucosal thickening of the paranasal sinuses. Layering fluid within the bilateral maxillary sinuses. The mastoid air cells and middle ear cavities are clear. Lumbar Spine: Normal anatomic alignment. No evidence of acute fracture or traumatic subluxation. The vertebral body heights are maintained. Mild loss of intervertebral disc height at all levels. No suspicious lytic or sclerotic osseous lesions. No significant abnormalities of the paraspinal musculature. Limited evaluation of the intra-abdominal structures without significant abnormalities. The abdominal aorta is of normal contour and caliber. AXIAL SPINAL LEVELS: L1-L2: Normal annular contour. There is no facet joint arthropathy. There is no neural foraminal stenosis. There is no demonstrated spinal canal stenosis. L2-L3: Normal annular contour. There is mild left and no right facet joint arthropathy. There is no neural foraminal stenosis. There is no demonstrated spinal canal stenosis. L3-L4: Shallow diffuse disc bulge. There is mild bilateral facet joint arthropathy. There is mild left and no right neural foraminal stenosis. There is no demonstrated spinal canal stenosis. L4-L5: Shallow diffuse disc bulge. There is mild bilateral facet joint arthropathy. There is mild left and no right neural foraminal stenosis. There is no demonstrated spinal canal stenosis. L5-S1: Mild diffuse disc bulge. There is mild bilateral facet joint arthropathy. There is no neural foraminal stenosis. There is no demonstrated spinal canal stenosis. Left Hip: Normal alignment of the left hip. No demonstrated acute fracture or dislocation of the left hip. No demonstrated cortical disruption. The trabecular lines are maintained. Mild degenerative arthropathy of the left hip with slight subchondral eburnation of the superior acetabulum and marginal osteophytosis. Otherwise, the joint space is well-preserved. No lytic or sclerotic osseous lesions. No demonstrated significant hip joint effusion. Mild fat stranding inferior to the left ischial tuberosity with mild enthesophyte formation. No demonstrated additional focal soft tissue swelling. No demonstrated soft tissue collection. No radiopaque foreign bodies. IMPRESSION: 1. No evidence of acute intracranial hemorrhage or edematous territorial infarction. 2. Mild to moderate sinonasal mucosal disease with layering fluid within the bilateral maxillary sinuses. 3. No evidence of acute fracture or traumatic subluxation of the lumbar spine. 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 Most notably on this limited exam without intrathecal contrast, there appears to be mild neural foraminal stenoses at L3-L4 and L4-L5. No overt spinal canal stenosis. 4. No demonstrated fracture or dislocation of the left hip. Mild degenerative arthropathy of the left hip. 5. Mild fat stranding inferior to the left ischial tuberosity with mild enthesophyte formation. Assessment & Plan Assessment & Plan (1) Lumbar spondylosis: Code(s): M47.816 - Spondylosis without myelopathy or radiculopathy, lumbar region Category: Medical (2) Lumbar spinal stenosis: Code(s): M48.061 - Spinal stenosis, lumbar region without neurogenic claudication Category: Medical (3) Vertebrogenic low back pain: Code(s): M54.51 - Vertebrogenic low back pain Category: Medical (4) Chronic back pain: Code(s): M54.9 - Dorsalgia, unspecified; G89.29 - Other chronic pain Category: Medical (5) Frequent falls: Code(s): R29.6 - Repeated falls Category: Medical Plan MRI of the lumbar spine to assess for neural integrity and compression and follow up on recent CT scan and xray findings. Patient is aware to call if pain worsens or if he develops any red flag symptoms to seek emergency care. Patient denies any cauda equina syndrome symptoms at this time. Scripts provided for lidocaine patches and gabapentin. Side effects and precautions were discussed with patient and his significant other. Recommend PT for gait disturbance with imbalance and frequent falls. Script provided. All questions and concerns have been answered and patient agreed with the plan. Follow up for MRI results and sooner as needed. Orders: Orders PT Evaluation and Treatment Today G89.29 - Other chronic pain, M25.572 - Pain in left ankle and joints of left foot, M54.9 - Dorsalgia, unspecified, R29.6 - Repeated falls MR lumbar spine wo con 01/04/24 F40.240 - Claustrophobia, M47.816 - Spondylosis without myelopathy or radiculopathy, lumbar region, M48.061 - Spinal stenosis, lumbar region without neurogenic claudication, M54.51 - Vertebrogenic low back pain Medications: New lidocaine 5% 1 patch topical DAILY 30 days 30 ea 0RF pain M47.816 - Spondylosis without myelopathy or radiculopathy, lumbar region, M48.061 - Spinal stenosis, lumbar region without neurogenic claudication, M54.51 - Vertebrogenic low back pain gabapentin 300 mg PO TID 30 days 90 caps 0RF pain G89.29 - Other chronic pain, M47.816 - Spondylosis without myelopathy or radiculopathy, lumbar region, M48.061 - Spinal stenosis, lumbar region without neurogenic claudication, M54.9 - Dorsalgia, unspecified Coding Level of Care Code New Pt Level 4 (18864) Diagnoses Lumbar spondylosis M47.816 Lumbar spinal stenosis M48.061 Vertebrogenic low back pain M54.51 Chronic back pain M54.9; G89.29 Frequent falls R29.6
[2024-01-04 14:58] VITALS: BP 144/82; PULSE 103; RESP 18; O2SAT 99; BMI 28.5
== END 2024-01-04 15:44 | disposition home or self-care (01) ==
PROVIDERS: Visit Provider Nurse Practitioner Family
DX: M47.816 Spondylosis without myelopathy or radiculopathy, lumbar region (principal); M48.061 Spinal stenosis, lumbar region without neurogenic claudication; M54.51 Vertebrogenic low back pain; M54.9 Dorsalgia, unspecified; G89.29 Other chronic pain; R29.6 Repeated falls
CPT/HCPCS: 99204

== ENCOUNTER → 2024-01-04 14:47 | Outpatient (BNVA) | payer MEDICAID, SELFPAY | PROVIDERS: Visit Provider Nurse Practitioner Family | DX: M47.816 Spondylosis without myelopathy or radiculopathy, lumbar region (principal); M48.061 Spinal stenosis, lumbar region without neurogenic claudication; M54.51 Vertebrogenic low back pain; G89.29 Other chronic pain; M54.9 Dorsalgia, unspecified; R29.6 Repeated falls | CPT/HCPCS: 99212 ==

== ENCOUNTER 2024-01-20 11:26 | Outpatient (AMB) | payer MEDICAID, SELFPAY ==
--- NOTE | 2024-01-20 11:28 | MHC.OFFVIS ---
Vital Signs 01/20/24 11:32 Height 6 ft Weight 209 lb BMI 28.3 BP 139/84 Blood Pressure Location Lt brachial Position Sitting Pulse 95 Pulse Source Pulse Oximeter Pulse Oximetry (%) 99 Oxygen Delivery Method Room Air Intake Visit Reasons: MRI follow up Allergies acetaminophen [From VICODIN] Allergy (Unknown, Verified 01/04/24 14:58) SWELLING/RASH hydrocodone [From VICODIN] Allergy (Unknown, Verified 01/04/24 14:58) SWELLING/RASH HPI Comments Details: Patient presents today for follow-up to discuss recent lumbar spine MRI results. Patient reports today moderate axial low back pain in consistent moderate to severe left ankle pain. This patient is suffering from chronic left ankle pain and has seen Orthopedics in the past and was told his imaging studies were normal. He has another Orthopedic follow up re: left ankle pain next month. His intensity of the radicular pain is not in agreement with the MRI findings. Patient is interested to undergo interventional treatments for his axial low back pain. Denies any fever, chills, unintentional weight loss, burning, numbness, bladder or bowel dysfunction or saddle anesthesia. Ambulates with walker and reports imbalance due to left ankle pain. PRIOR: Patient is a 48 years old male with history of work related injury and chronic left ankle pain since 12/05/21 when he tripped over a metal table while carrying a heavy box presents today for initial evaluation of progressively worsening chronic low back pain, frequent falls and weakness. Patient was seen by Orthopedics and was referred to physical therapy but had no follow up since 2021. Patient also reports left knee pain. His back pain is worse with standing, flexing forward, bending and walking and less severe at rest or sitting. He denies any radiation of back pain into legs but reports increased tingling and pain in left ankle. Patient reports he had EMG and NVC studies of his lower extremities, these results are not available for review today. Pain affects his daily activities, functioning, mobility, mood, sleep and social interactions. Denies any fever, chills, unintentional weight loss, burning, numbness, bladder or bowel dysfunction or saddle anesthesia. Reports bilateral lower extremity imbalance and weakness. Uses walker with ambulation. Patient smokes 3-5 cigarets per day. Denies alcohol consumptions or illicit drug use. He is currently on Suboxone, h/o opioid abuse. Oswestry Low Back Disability Score=40 (completely disabled). Onset: 12/05/21 Location: Low back pain, left knee and left ankle pain Duration: Chronic pain since 2021 Characteristics of symptom or complaint: Throbbing, pulling, aching, hurting, sharp, tingling, radiating Aggravating or associated factors: Standing, walking, movements, forward flexion or bending Relieving factors: Heat therapy, rest, Tylenol, Ibuprofen Treatment: PT and OT in 2021, walker [facility] Medical History History of opioid abuse Left ankle pain Work related injury Erectile dysfunction Tobacco dependence Borderline high blood pressure Unsteady gait Abnormal gait due to muscle weakness Chronic back pain Social History Household Members: Significant Other Housing: Apartment Alcohol intake: never Patient Tobacco Use Status: Current everyday Tobacco user Cigarette Packs Per Day: 5 Cigarettes Per Day: 20 Current occupational status: employed 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 Alert and oriented. Mood and affect appropriate. Follows and participates in conversation appropriately. Respiratory effort is unlabored. No cough. Able to transition from sit to stand unassisted. Uses walker with ambulation. Ambulates with bilaterally normal heel strike and toe off on the right, reports imbalance and limited ROM due to chronic left ankle pain. Decreased left heel strike. Back/Spine/Pelvis Other: Limited lumbar ROM due to pain. Slow, antalgic gait with intermittent staggering due to left ankle pain. Mild limping. Can flex forward to 65-70 degrees and extend to 5-10 degrees before experiencing lumbar pain, worse pain with forward flexion and bending. Demonstrates 5/5 strength of quadriceps bilaterally as well as flexion/dorsiflexion of bilateral feet against resistance. 2+ pedal pulses bilaterally. Seated straight leg rise with dorsiflexion negative bilaterally. +1 patellar and diminished achilles reflexes bilaterally. Facet loading test positive bilaterally. No tenderness in the projection of both SIJ areas. Yony?s and Stinchfield tests are negative bilaterally. Mild groin pain with I/E left hip rotations. Cervical Spine: cervical ROM normal, cervical muscular tenderness and No Cervical spine tenderness Thoracic/Lumbar Spine: thoracic and lumbar spine normal to inspection, No Thoracic/lumbar spine scar(s), Lasegue's sign negative, straight leg raise negative bilaterally, pain with thoraco-lumbar ROM, paraspinal muscle tenderness, thoraco-lumbar ROM limited, No thoracic spinal tenderness and lumbar spinal tenderness (L4-S1) Pelvis: no buttock tenderness Sacroiliac joints: bilaterally nontender Extrem General: Yes capillary refill normal, Yes no clubbing, cyanosis or edema and Yes no calf tenderness Left lower extremity: knee Details: normal to inspection, tenderness Location: of the patella and of the medial joint line, normal ROM and crepitus; no swelling, no ecchymosis and no unusual warmth Results Reviewed Results Reviewed: XR LUMBAR PUNCTURE 04/30/23 CLINICAL INFORMATION: Motor neuron disease. TECHNIQUE: Lumbar puncture with fluoroscopic guidance. FINDINGS: Informed consent was obtained from the patient prior to the procedure. During this process, the procedure and potential alternatives were explained, along with the intended outcome and benefits. The risks of the procedure, as well as the risk of not doing the procedure, were discussed. The patient was given the opportunity to ask questions regarding the procedure and appeared competent to make medical decisions. A signed consent form which documents this discussion was placed in the medical record. First attempts were made from a posterior approach at the L3-L4 level however access was not obtained. With Dr. Ordoñez's assistance spinal needle was placed at the L4-L5 level. Opening pressure was 12 cm of water. The cerebral spinal fluid was clear. A total of 8.5 mL of fluid was removed. Patient tolerated procedure without difficulty. FLUOROSCOPY TIME: 1.9 minutes DOSE AREA PRODUCT: 17.366 Gy-cm2 (roblero-centimeter squared) IMPRESSION: Successful lumbar puncture L4-L5 level. XR lumbar spine 2-3V 11/05/22 CLINICAL INFORMATION: Reason for Exam CHRONIC BI LOW BACK PAIN FINDINGS: 5 nonrib-bearing lumbar-type vertebral bodies. Vertebral body heights are maintained. Alignment is maintained. Disc space heights are maintained. Paravertebral soft tissues are unremarkable. IMPRESSION: Unremarkable exam. CT HEAD WITHOUT CONTRAST CT LUMBAR SPINE WITHOUT CONTRAST CT HIP SPINE WITHOUT CONTRAST, LEFT 11/22/21 CLINICAL INFORMATION: Left arm and leg weakness for 2 months. Hip pain. FINDINGS: Head: There is no evidence of acute intracranial hemorrhage or edematous territorial infarction. There is no abnormal attenuation within the brain parenchyma. Roblero-white matter differentiation is preserved. The ventricles are normal in size and configuration. Persistent cavum veli interpositi. No evidence for obstructive hydrocephalus. No abnormal mass effect or midline shift. No extra-axial fluid collections. No acute soft tissue or osseous abnormalities. Mild mucosal thickening of the paranasal sinuses. Layering fluid within the bilateral maxillary sinuses. The mastoid air cells and middle ear cavities are clear. Lumbar Spine: Normal anatomic alignment. No evidence of acute fracture or traumatic subluxation. The vertebral body heights are maintained. Mild loss of intervertebral disc height at all levels. No suspicious lytic or sclerotic osseous lesions. No significant abnormalities of the paraspinal musculature. Limited evaluation of the intra-abdominal structures without significant abnormalities. The abdominal aorta is of normal contour and caliber. AXIAL SPINAL LEVELS: L1-L2: Normal annular contour. There is no facet joint arthropathy. There is no neural foraminal stenosis. There is no demonstrated spinal canal stenosis. L2-L3: Normal annular contour. There is mild left and no right facet joint arthropathy. There is no neural foraminal stenosis. There is no demonstrated spinal canal stenosis. L3-L4: Shallow diffuse disc bulge. There is mild bilateral facet joint arthropathy. There is mild left and no right neural foraminal stenosis. There is no demonstrated spinal canal stenosis. L4-L5: Shallow diffuse disc bulge. There is mild bilateral facet joint arthropathy. There is mild left and no right neural foraminal stenosis. There is no demonstrated spinal canal stenosis. L5-S1: Mild diffuse disc bulge. There is mild bilateral facet joint arthropathy. There is no neural foraminal stenosis. There is no demonstrated spinal canal stenosis. Left Hip: Normal alignment of the left hip. No demonstrated acute fracture or dislocation of the left hip. No demonstrated cortical disruption. The trabecular lines are maintained. Mild degenerative arthropathy of the left hip with slight subchondral eburnation of the superior acetabulum and marginal osteophytosis. Otherwise, the joint space is well-preserved. No lytic or sclerotic osseous lesions. No demonstrated significant hip joint effusion. Mild fat stranding inferior to the left ischial tuberosity with mild enthesophyte formation. No demonstrated additional focal soft tissue swelling. No demonstrated soft tissue collection. No radiopaque foreign bodies. IMPRESSION: 1. No evidence of acute intracranial hemorrhage or edematous territorial infarction. 2. Mild to moderate sinonasal mucosal disease with layering fluid within the bilateral maxillary sinuses. 3. No evidence of acute fracture or traumatic subluxation of the lumbar spine. 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 Most notably on this limited exam without intrathecal contrast, there appears to be mild neural foraminal stenoses at L3-L4 and L4-L5. No overt spinal canal stenosis. 4. No demonstrated fracture or dislocation of the left hip. Mild degenerative arthropathy of the left hip. 5. Mild fat stranding inferior to the left ischial tuberosity with mild enthesophyte formation. MR ankle LT wo con 01/28/23 IMPRESSION: 1. Mild edema in the subcutaneous soft tissues. 2. Old partial tear of the anterior talofibular ligament. MR SPINE LUMBAR without CONTRAST 01/11/24 INDICATION: Vertebrogenic low back pain. Spondylosis without myelopathy or radiculopathy. Spinal stenosis without neurogenic claudication. TECHNIQUE: Unenhanced multiplanar, multisequence MR imaging of the lumbar spine. COMPARISON: XR lumbar 11/05/2022, CT lumbar 11/22/2021 (reports only). FINDINGS: Normal lumbar alignment is demonstrated. Vertebral heights are well maintained. Bone marrow signal is within normal limits, and no suspicious osseous lesion is identified. Conus medullaris is unremarkable. The conus terminates at L1. There is a congenitally small canal. Shortened pedicles are noted. Paraspinal soft tissues and visualized portions of the abdomen and pelvis are unremarkable. At L1-2 there is no significant disc herniation or protrusion. No central canal stenosis is seen. There is mild bilateral neural foraminal narrowing, right greater than left. Bilateral facet hypertrophy is identified. At L2-3 there is a disc bulge with mild to moderate left and mild right neural foraminal narrowing. No central canal stenosis is seen. Bilateral facet and ligamentum flavum hypertrophy is identified. At L3-4 there is disc bulge is seen with mild right and moderate to severe left neural foraminal narrowing. Bilateral facet and ligamentum flavum hypertrophy is identified. No central canal stenosis is seen. There is impingement on the exiting left-sided nerve roots. At L4-5 there is disc bulge is seen with bilateral facet and ligamentum flavum hypertrophy. There is moderate bilateral neural foraminal narrowing with impingement on the exiting bilateral nerve roots. At L5-S1 there is bilateral facet hypertrophy. There is mild left neural foraminal narrowing. No central canal stenosis is identified. IMPRESSION: 1. At L3-4 there is moderate to severe left neural foraminal narrowing. Mild right neural foraminal narrowing is seen. There is impingement on the exiting left-sided nerve roots. 2. At L4-5 there is moderate bilateral neural foraminal narrowing with impingement on the exiting bilateral nerve roots. 3. Mild left neural foraminal narrowing is seen at L5-S1. 4. At L2-3 there is mild to moderate left and mild right neural foraminal narrowing. 5. At L1-2 there is mild bilateral neural foraminal narrowing, right greater than left. 6. Bilateral facet hypertrophy seen throughout the lumbar spine Assessment & Plan Assessment & Plan (1) Lumbar spondylosis: Code(s): M47.816 - Spondylosis without myelopathy or radiculopathy, lumbar region Category: Medical (2) Chronic back pain: Code(s): M54.9 - Dorsalgia, unspecified; G89.29 - Other chronic pain Category: Medical (3) Left ankle pain: Code(s): M25.572 - Pain in left ankle and joints of left foot Category: Medical (4) Lumbar radiculopathy: Code(s): M54.16 - Radiculopathy, lumbar region Category: Medical Plan Lumbar spine MRI results were discussed with patient and his family today. Patient continues to endorse significant axial low back pain. However, his intensity of the radicular pain is not in agreement with the MRI findings. He is interested to address his axial low back pain with bilateral diagnostic L3-L4 DR L5 MBB is local and fluoroscopy. If he has significant relief from the diagnostic blocks for his axial low back pain, will consider either therapeutic injections, Sprint PNS or RFA depending on his preference. Continue lidocaine patches and gabapentin, and PT for gait disturbance with imbalance and frequent falls. PT script was provided at previous visit. Follow up with Orthopedic re: chronic left ankle pain as planned for next month. All questions and concerns have been answered and patient agreed with the plan. Follow up after injections and sooner as needed. Coding Level of Care Code Est Pt Level 4 (48438) Diagnoses Lumbar spondylosis M47.816 Chronic back pain M54.9; G89.29 Left ankle pain M25.572 Lumbar radiculopathy M54.16
[2024-01-20 11:32] VITALS: BP 139/84; PULSE 95; O2SAT 99; BMI 28.3
== END 2024-01-20 11:53 | disposition home or self-care (01) ==
PROVIDERS: PCP Nurse Practitioner Family; Visit Provider Nurse Practitioner Family
DX: M47.816 Spondylosis without myelopathy or radiculopathy, lumbar region (principal); M54.9 Dorsalgia, unspecified; G89.29 Other chronic pain; M25.572 Pain in left ankle and joints of left foot; M54.16 Radiculopathy, lumbar region
CPT/HCPCS: 99214

== ENCOUNTER → 2024-01-20 11:26 | Outpatient (BNVA) | payer MEDICAID, SELFPAY | PROVIDERS: PCP Nurse Practitioner Family; Visit Provider Nurse Practitioner Family | DX: M47.816 Spondylosis without myelopathy or radiculopathy, lumbar region (principal); M54.16 Radiculopathy, lumbar region; M54.9 Dorsalgia, unspecified; M25.572 Pain in left ankle and joints of left foot; G89.4 Chronic pain syndrome | CPT/HCPCS: 99212 ==

== ENCOUNTER 2024-02-17 08:37 | Outpatient (REF) | payer MEDICAID, SELFPAY ==
--- NOTE | ~2024-02-17 | XR_ITS ---
EXAMINATION: XR ANKLE, LEFT CLINICAL INFORMATION: Pain, ankle and joints of foot. COMPARISON: MR left ankle January 28, 2023, x-ray left ankle 07/17/2022. TECHNIQUE: AP, lateral, and mortise views of the left ankle. FINDINGS: Bone mineralization is normal. No significant calcaneal spur. Ankle mortise maintained. No displaced fracture. Soft tissue swelling. XR/XR ankle LT min 3V IMPRESSION: Soft tissue swelling. No displaced fracture.
== END 2024-02-17 08:38 | disposition home or self-care (01) ==
LOC: HO.HOSX 08:37
PROVIDERS: Visit Provider Orthopaedic Surgery
DX: M25.572 Pain in left ankle and joints of left foot (principal)
CPT/HCPCS: 73610; 99212

== ENCOUNTER 2024-02-17 12:50 | Outpatient (AMB) | payer MEDICAID, SELFPAY ==
--- NOTE | 2024-02-17 13:09 | MHC.OFFVIS ---
Vital Signs 02/17/24 13:27 Height 6 ft Weight 208 lb BMI 28.2 Intake Visit Reasons: OV-Left ankle pain-following up Intake Note: Federico is a 48 year old male who presents today with a walker for a follow up visit for left ankle pain. He was last seen for this with Reyna Angulo on 07/17/22. Work related injury on 12/05/21 when he tripped over a metal table while carrying a box. Patient reports he has been having ongoing pain and swelling since his injury. He expresses he has immediate pain with palpitation and unable to ambulate without pain. He is bearing his weight to his right side causing him to limp. He does not have stability so he has had a couple falls due to his ankle. He has tried PT and a brace but he found no relief. He has not been able to work since this injury Accompanied by: Spouse Allergies acetaminophen [From VICODIN] Allergy (Unknown, Verified 02/17/24 13:33) SWELLING/RASH hydrocodone [From VICODIN] Allergy (Unknown, Verified 02/17/24 13:33) SWELLING/RASH HPI HPI OV-Left ankle pain-following up: Details: Federico is a 48 year old male who presents today with a walker for a follow up visit for left ankle pain. He was last seen for this with Reyna Angulo on 07/17/22. Work related injury on 12/05/21 when he tripped over a metal table while carrying a box. Patient reports he has been having ongoing pain and swelling since his injury. He expresses he has immediate pain with palpitation and unable to ambulate without pain. He is bearing his weight to his right side causing him to limp. He does not have stability so he has had a couple falls due to his ankle. He has tried PT and a brace but he found no relief. He has not been able to work since this injury. He has also seeing the pain management doctors. He had a MRI of his lumbar spine. He walks with a walker. He states he has weakness in his legs and radiating pain. [facility] Medical History Frequent falls History of opioid abuse Left ankle pain Work related injury Erectile dysfunction Tobacco dependence Borderline high blood pressure Unsteady gait Abnormal gait due to muscle weakness Chronic back pain Social History (Updated 02/17/24 @ 13:34 by RAISA Baum) Household Members: Significant Other Housing: Apartment Alcohol intake: never Patient Tobacco Use Status: Current everyday Tobacco user Cigarette Packs Per Day: 5 Cigarettes Per Day: 20 Current occupational status: unemployed Current occupation: right hand dominant Physical Exam Vital Signs: BMI result Body Mass Index 28.2 Extrem Other: There is generalized edema in the left lower extremity. He has 4+ out of 5 dorsiflexion strength in the left lower extremity he is hyperreflexic but symmetric bilateral patellar reflexes with no clonus in the lower extremities. His dorsalis pedis pulses palpable. He has a negative anterior drawer of the left ankle and mild lateral nonspecific tenderness to palpation. Results Reviewed Results Reviewed: I personally reviewed the MR images. IMPRESSION: 1. Mild edema in the subcutaneous soft tissues. 2. Old partial tear of the anterior talofibular ligament. Assessment & Plan Assessment & Plan (1) Left ankle pain: Code(s): M25.572 - Pain in left ankle and joints of left foot Category: Medical Plan: The waist has left ankle pain. He had a fall several years ago and has been unable to return to normal ambulation. This has very little to do with his ankle and more to do with his spine and his gait mechanics. He is being seen in the pain management department. I explained this to him. He has a ankle brace at home. I do think he would benefit from continued physical therapy for gait training. Prescription was written. He should follow up with the pain management doctors as they are treating him for his spine currently. Orders: Orders PT Evaluation and Treatment Today M25.572 - Pain in left ankle and joints of left foot XR ankle LT min 3V 02/17/24 M25.579 - Pain in unspecified ankle and joints of unspecified foot Coding Level of Care Code Est Pt Level 4 (10745) Diagnoses Left ankle pain M25.572
[2024-02-17 13:27] VITALS: BMI 28.2
== END 2024-02-17 15:42 | disposition home or self-care (01) ==
PROVIDERS: PCP Nurse Practitioner Family; Visit Provider Orthopaedic Surgery
DX: M25.572 Pain in left ankle and joints of left foot (principal)
CPT/HCPCS: 99213

== ENCOUNTER 2024-02-22 06:22 | Outpatient (REF) | payer MEDICAID, SELFPAY | END 2024-02-22 06:23 | disposition home or self-care (01) | LOC: CF 06:22 | PROVIDERS: Visit Provider Anesthesiology | DX: M47.816 Spondylosis without myelopathy or radiculopathy, lumbar region (principal); F41.9 Anxiety disorder, unspecified; Z53.20 Procedure and treatment not carried out because of patient's decision for unspecified reasons | CPT/HCPCS: 99212 ==

== ENCOUNTER 2024-02-22 13:25 | Outpatient (AMB) | payer MEDICAID, SELFPAY ==
--- NOTE | 2024-02-22 13:25 | MHC.OFFVIS ---
Vital Signs 02/22/24 13:44 Height 6 ft Weight 208 lb BMI 28.2 BP 136/90 H Blood Pressure Location Lt brachial Position Sitting Respiration 18 Pulse 92 Pulse Source Pulse Oximeter Pulse Oximetry (%) 100 Comment pre-op Intake Visit Reasons: BILATERAL DIAGNOSTIC L3, L4, DRL5 MBB Allergies acetaminophen [From VICODIN] Allergy (Unknown, Verified 02/17/24 13:33) SWELLING/RASH hydrocodone [From VICODIN] Allergy (Unknown, Verified 02/17/24 13:33) SWELLING/RASH PFSH Medical History Frequent falls History of opioid abuse Left ankle pain Work related injury Erectile dysfunction Tobacco dependence Borderline high blood pressure Unsteady gait Abnormal gait due to muscle weakness Chronic back pain Social History (Updated 02/17/24 @ 13:34 by RAISA Baum) Household Members: Significant Other Housing: Apartment Alcohol intake: never Patient Tobacco Use Status: Current everyday Tobacco user Cigarette Packs Per Day: 5 Cigarettes Per Day: 20 Current occupational status: unemployed Current occupation: right hand dominant Physical Exam Vital Signs: Last Vital Signs Pulse 92 02/22/24 13:44 Resp 18 02/22/24 13:44 BP 136/90 H 02/22/24 13:44 Pulse Ox 100 02/22/24 13:44 BMI result Body Mass Index 28.2 Assessment & Plan Assessment & Plan (1) Anxiety due to invasive procedure: Code(s): F41.9 - Anxiety disorder, unspecified Category: Medical Plan Informed consent was explained. The patient refused to go for the procedure. The procedure was canceled. Orders: Orders FL guidance in treatment room Today M47.816 - Spondylosis without myelopathy or radiculopathy, lumbar region Coding Level of Care Code Procedure Only Diagnoses Anxiety due to invasive procedure F41.9
[2024-02-22 13:44] VITALS: BP 136/90; PULSE 92; RESP 18; O2SAT 100; BMI 28.2
== END 2024-02-22 13:53 | disposition home or self-care (01) ==
LOC: HO.PMCPRC 13:25
PROVIDERS: PCP Nurse Practitioner Family; Referring Provider Nurse Practitioner Family; Visit Provider Anesthesiology
DX: F41.9 Anxiety disorder, unspecified (principal); M47.816 Spondylosis without myelopathy or radiculopathy, lumbar region
CPT/HCPCS: 99212